=== PATIENT | female | born 1945 | race Caucasian/White ===

== ENCOUNTER 2020-02-20 09:41 | Observation (INO) ==
[2020-02-20] MEDS ORDERED: Pantoprazole 80 MG in 0.9 % Sodium Chloride 50 ML IVPB ONE (09:54)
[2020-02-20] MEDS ORDERED: 0.9 % Sodium Chloride 1,000 ML IVC ONE (09:58)
[2020-02-20] MEDS ORDERED: Ondansetron 4 MG/2 ML VIAL IVP ONE (10:31)
[2020-02-20 10:40] LABS: Basophils % 0.4 %; Red Cell Distribution Width 16.3 % (11.5-14.5)
[2020-02-20 10:42] LABS: Eosinophils % 0.2 %; Hematocrit 38.1 % (35.3-44.9); Hemoglobin 11.5 g/dL (11.5-15.4); Immature Granulocytes % 0.8 % (0-4); Immature Platelets 7.5 % (1.1-6.1); Lymphocytes # 0.6 K/mcL (0.6-4.6); Mean Corpuscular HGB Conc 30.2 g/dL (31.6-35.5); Mean Corpuscular Hemoglobin 27.4 pg (28.0-33.3); Mean Corpuscular Volume 90.9 fL (83.0-100.0); Mean Platelet Volume 12.3 fL (9.4-12.4); Monocytes # 0.2 K/mcL (0.0-1.3); Monocytes % 4.3 %; Neutrophils # 4.4 K/mcL (1.6-8.9); Red Blood Count 4.19 M/mcL (3.82-4.97); Segmented Neutrophils % 83.3 %; White Blood Count 5.3 K/mcL (4.3-11.1)
[2020-02-20 10:47] LABS: INR 1.4; Prothrombin Time 16.4 Seconds (9.4-12.1)
[2020-02-20 10:56] LABS: Alanine Aminotransferase 44 Units/L (7-52); Albumin 4.2 g/dL (3.5-5.7); Albumin/Globulin Ratio 1.6 (1.1-2.2); Alkaline Phosphatase 146 Units/L (34-104); Aspartate Amino Transferase 55 Units/L (13-39); BUN/Creatinine Ratio 38 (6-26); Bilirubin,Direct 0.5 mg/dL (0.0-0.2); Bilirubin,Total 1.5 mg/dL (0.3-1.0); Blood Urea Nitrogen 30 mg/dL (8-23); Calcium 9.7 mg/dL (8.6-10.3); Carbon Dioxide 20 mEq/L (23-29); Chloride 103 mEq/L (98-107); Globulin 2.7 g/dL (2.4-3.5); Glucose 264 mg/dL (70-105); Osmolality,Calculated 305 (280-300); Sodium 140 mEq/L (136-145); Total Protein 6.9 g/dL (6.4-8.9); eGFR For African Americans > 60 (> 60); eGFR For Non-African Americans > 60 (> 60)
[2020-02-20 11:05] LABS: Platelet Count 88 K/mcL (140-400)
[2020-02-20] MEDS ORDERED: Naloxone 0.4 MG/ML INJ IVP PRN (11:37)
[2020-02-20] MEDS ORDERED: Ondansetron 4 MG/2 ML VIAL IVP PRN (11:37)
[2020-02-20] MEDS ORDERED: Dextrose Gel 15 GM/37.5 ML TUBE PO PRN ×2 (11:40)
[2020-02-20] MEDS ORDERED: *HR* Dextrose 50 % in Water (Syg) 50 ML SYRINGE IVP PRN (11:40)
[2020-02-20] MEDS ORDERED: D5% in Water 1,000 ML IVC PRN (11:40)
[2020-02-20] MEDS: Ringers Solution, Lactated 1,000 ML IVC SCH (13:21)
[2020-02-20] MEDS: Pantoprazole 40 MG VIAL IVP SCH ×2 (13:42→17:30)
[2020-02-20] MEDS: Acetaminophen 325 MG TABLET PO PRN ×2 (14:31→20:33)
[2020-02-20] MEDS: Insulin LISPRO 300 UNITS/3 ML VIAL SQ SCH (16:39)
[2020-02-20 18:39] LABS: Hemoglobin 9.3 g/dL (11.5-15.4)
[2020-02-21 01:57] LABS: Basophils % 0.5 %; Hematocrit 26.7 % (35.3-44.9); Hemoglobin 8.2 g/dL (11.5-15.4); Immature Granulocytes % 0.5 % (0-4); Lymphocytes # 0.5 K/mcL (0.6-4.6); Lymphocytes % 25.7 %; Mean Corpuscular HGB Conc 30.7 g/dL (31.6-35.5); Mean Corpuscular Hemoglobin 27.5 pg (28.0-33.3); Mean Corpuscular Volume 89.6 fL (83.0-100.0); Mean Platelet Volume 12.1 fL (9.4-12.4); Monocytes # 0.2 K/mcL (0.0-1.3); Monocytes % 7.4 %; Neutrophils # 1.3 K/mcL (1.6-8.9); Red Blood Count 2.98 M/mcL (3.82-4.97); Red Cell Distribution Width 16.4 % (11.5-14.5); Segmented Neutrophils % 64.9 %
[2020-02-21 01:58] LABS: Platelet Count 63 K/mcL (140-400)
[2020-02-21 02:15] LABS: BUN/Creatinine Ratio 27 (6-26); Blood Urea Nitrogen 20 mg/dL (8-23); Calcium 8.3 mg/dL (8.6-10.3); Carbon Dioxide 22 mEq/L (23-29); Chloride 112 mEq/L (98-107); Glucose 116 mg/dL (70-105); Magnesium 1.6 mg/dL (1.6-2.6); Osmolality,Calculated 296 (280-300); Sodium 141 mEq/L (136-145); eGFR For African Americans > 60 (> 60); eGFR For Non-African Americans > 60 (> 60)
[2020-02-21 02:16] LABS: Albumin 3.1 g/dL (3.5-5.7); Albumin/Globulin Ratio 1.6 (1.1-2.2); Bilirubin,Direct 0.3 mg/dL (0.0-0.2); Bilirubin,Indirect 0.6 mg/dL (0.0-1.0); Bilirubin,Total 0.9 mg/dL (0.3-1.0); Globulin 1.9 g/dL (2.4-3.5)
[2020-02-21] MEDS: Ringers Solution, Lactated 1,000 ML IVC SCH ×2 (05:01→16:46)
[2020-02-21] MEDS: Pantoprazole 40 MG VIAL IVP SCH ×2 (05:02→17:48)
[2020-02-21] MEDS: Insulin LISPRO 300 UNITS/3 ML VIAL SQ SCH ×3 (07:30→16:48)
[2020-02-21] MEDS ORDERED: Lidocaine -MPF 2% 2 ML VIAL ONE (11:33)
[2020-02-21] MEDS ORDERED: *HR* Propofol 200 MG/20 ML VIAL IVP ONE (11:33)
[2020-02-21] MEDS: 0.9 % Sodium Chloride 500 ML IVC SCH (11:59)
[2020-02-21] MEDS ORDERED: Dextrose Gel 15 GM/37.5 ML TUBE PO PRN ×4 (15:46→15:47)
[2020-02-21] MEDS ORDERED: *HR* Dextrose 50 % in Water (Syg) 50 ML SYRINGE IVP PRN ×2 (15:46→15:47)
[2020-02-21] MEDS ORDERED: D5% in Water 1,000 ML IVC PRN ×2 (15:46→15:47)
[2020-02-21 17:37] LABS: Hepatitis B Surface Antigen Nonreactive (Nonreactive)
[2020-02-21 18:12] LABS: Hepatitis A Antibody IgM Nonreactive (Nonreactive)
[2020-02-21 18:18] LABS: Hepatitis B Core IgM Nonreactive (Nonreactive)
[2020-02-21 18:21] LABS: Hepatitis C Virus Antibody Nonreactive (Nonreactive)
[2020-02-21] MEDS ORDERED: Insulin LISPRO 300 UNITS/3 ML VIAL SQ SCH (21:00)
[2020-02-21] MEDS: Simethicone 80 MG TAB.CHEW PO PRN (21:15)
[2020-02-21] MEDS: Sucralfate 1 GM TABLET PO SCH (21:51)
[2020-02-22] MEDS: Simethicone 80 MG TAB.CHEW PO PRN ×2 (01:43→07:27)
[2020-02-22] MEDS: Ringers Solution, Lactated 1,000 ML IVC SCH ×2 (03:22→06:00)
[2020-02-22 05:06] LABS: Basophils % 0.3 %; Monocytes % 6.7 %
[2020-02-22 05:08] LABS: Eosinophils # 0.1 K/mcL (0.0-0.6); Eosinophils % 2.2 %; Hematocrit 29.6 % (35.3-44.9); Immature Platelets 5.1 % (1.1-6.1); Lymphocytes # 0.7 K/mcL (0.6-4.6); Lymphocytes % 22.4 %; Mean Corpuscular HGB Conc 30.4 g/dL (31.6-35.5); Mean Corpuscular Volume 88.9 fL (83.0-100.0); Mean Platelet Volume 11.2 fL (9.4-12.4); Monocytes # 0.2 K/mcL (0.0-1.3); Neutrophils # 2.1 K/mcL (1.6-8.9); Red Blood Count 3.33 M/mcL (3.82-4.97); Red Cell Distribution Width 16.4 % (11.5-14.5); Segmented Neutrophils % 67.4 %; White Blood Count 3.1 K/mcL (4.3-11.1)
[2020-02-22 05:13] LABS: Platelet Count 64 K/mcL (140-400)
[2020-02-22 05:29] LABS: Alanine Aminotransferase 29 Units/L (7-52); Albumin 3.2 g/dL (3.5-5.7); Albumin/Globulin Ratio 1.6 (1.1-2.2); Alkaline Phosphatase 99 Units/L (34-104); Aspartate Amino Transferase 44 Units/L (13-39); BUN/Creatinine Ratio 15 (6-26); Bilirubin,Total 1.2 mg/dL (0.3-1.0); Blood Urea Nitrogen 12 mg/dL (8-23); Calcium 8.4 mg/dL (8.6-10.3); Carbon Dioxide 23 mEq/L (23-29); Chloride 109 mEq/L (98-107); Glucose 155 mg/dL (70-105); Osmolality,Calculated 293 (280-300); Potassium 3.7 mEq/L (3.5-5.1); Sodium 140 mEq/L (136-145); Total Protein 5.2 g/dL (6.4-8.9); eGFR For African Americans > 60 (> 60); eGFR For Non-African Americans > 60 (> 60)
[2020-02-22 05:43] LABS: INR 1.6; Prothrombin Time 18.3 Seconds (9.4-12.1)
[2020-02-22] MEDS: Pantoprazole 40 MG VIAL IVP SCH (05:56)
[2020-02-22] MEDS: Sucralfate 1 GM TABLET PO SCH (07:25)
[2020-02-22] MEDS: Insulin LISPRO 300 UNITS/3 ML VIAL SQ SCH ×2 (07:25→11:27)
[2020-02-22] MEDS: 0.9 % Sodium Chloride 500 ML IVC SCH (09:32)
[2020-02-22 14:15] VITALS: BP 107/53
[2020-02-22] MEDS ORDERED: Simethicone 80 MG TAB.CHEW PO ONE (15:00)
== END 2020-02-22 15:30 | disposition home or self-care (01) ==
LOC: EMEROOARM 09:41 → 3ANU 09:41 → SUATTDRO 11:32 → 3ANU 13:44
PROVIDERS: ADMIT Internal Medicine; ATTEND Internal Medicine